=== PATIENT | male | born 1990 | race Two or more races ===

== ENCOUNTER → 2021-02-12 | Outpatient (REF) | payer OTHER ==
[2021-02-12 15:27] LABS: SEMEN APPEARANCE OPAQUE (OPAQUE); SEMEN VISCOSITY LIQUID (LIQUID); SEMEN VOLUME 2.5 ml (2.0-5.0); SEMEN pH 7.5 (7.0-8.0); SPERM CONCENTRATION 26.2 M/ml (>=15.0); WBC CONCENTRATION <=1 M/ml (<=1 M/ml)
== END ==
LOC: M LAB REF 14:33
PROVIDERS: ATTEND Physician Assistant
DX: Z31.41 Encounter for fertility testing (principal)

== ENCOUNTER → 2022-03-11 | Outpatient (REF) | payer OTHER ==
[2022-03-11 11:25] LABS: SEMEN APPEARANCE OPAQUE (OPAQUE); SEMEN VISCOSITY LIQUID (LIQUID); SEMEN VOLUME 3.8 ML (2.0-5.0); SEMEN WBC <=1 M/ml (<=1 M/ml)
== END ==
LOC: M LAB REF 10:50
PROVIDERS: ATTEND Obstetrics & Gynecology
DX: N46.8 Other male infertility (principal)

== ENCOUNTER 2022-05-08 22:52 | Emergency (ER) | payer OTHER ==
[~2022-05-08] VITALS: Ht 175.3 cm; Wt 120.4 kg
[2022-05-08 22:54] VITALS: BP 164/110
[2022-05-08] MEDS ORDERED: IBUP1TAB7 PO (23:03)
[2022-05-08] MEDS ORDERED: RIZA10TA2 PO (23:03)
[2022-05-08] MEDS ORDERED: VALS1TAB67 PO (23:03)
[2022-05-08] MEDS ORDERED: AMLO10TA PO (23:03)
[2022-05-08] MEDS ORDERED: AMIT10TA7 PO (23:03)
== END 2022-05-09 01:13 | disposition left against medical advice (07) ==
LOC: M ED 22:52
DX: Z53.21 Procedure and treatment not carried out due to patient leaving prior to being seen by health care provider (principal)

== ENCOUNTER → 2022-10-12 | Outpatient (CLI) | payer OTHER ==
[~2022-10-12] MED LIST: AMIT10TA7 PO; AMLO10TA PO; IBUP1TAB7 PO; RIZA10TA2 PO; VALS1TAB67 PO
== END ==
LOC: M RAD 14:44
PROVIDERS: ATTEND Physician Assistant Surgical
DX: S52.354A Nondisplaced comminuted fracture of shaft of radius, right arm, initial encounter for closed fracture (principal); X58.XXXA Exposure to other specified factors, initial encounter; Y92.89 Other specified places as the place of occurrence of the external cause; Y93.89 Activity, other specified; Y99.8 Other external cause status